=== PATIENT | male | born 1965 | race Caucasian/White ===

== ENCOUNTER 2024-06-17 13:36 | Inpatient (IN) | payer MEDICARE, OTHER ==
[~2024-06-17] VITALS: Ht 162.6 cm; Wt 84.3 kg
[~2024-06-17 13:36] MED LIST: AMANTADINE100 MG PO; CITALOPRAM HBR20 MG PO; LIPITOR20 MG PO; REQUIP1 MG PO; UROXATRAL10 MG PO; ZANTAC150 MG PO
[2024-06-17] MEDS ORDERED: LIDOCAINE 2% VISCOUS 6 ML SYR TOP ONE (14:00)
[2024-06-17 15:29] LABS: BILIRUBIN, URINE NEGATIVE (negative); BLOOD/HGB, URINE SMALL (Negative); KETONE, URINE TRACE (Negative); LEUK ESTERASE, URINE NEGATIVE (negative); NITRITE, URINE NEGATIVE (negative)
[2024-06-17 15:44] LABS: EPITHELIAL CELLS, URINE 0 /lpf (0-1+)
[2024-06-17 15:45] LABS: BACTERIA, URINE NONE SEEN /hpf (negative); CASTS, URINE NONE SEEN \\lpf; COLLECTION TYPE, URINE CATH; CRYSTALS, URINE NONE SEEN (0-1+); REFLEX CULTURE, URINE No (No)
[2024-06-17 15:55] LABS: BASOPHILS 0.5 % (0-2); EOSINOPHILS 2.3 % (0-6); HEMATOCRIT 37.8 % (35.0-50.0); LYMPHOCYTES 19.4 % (24-44); MCH 29.4 (27-36); MCHC 34.4 g/dl (30-36); MCV 85.3 fl (81-99); MONOCYTES 5.5 % (0-12); NEUTROPHILS 72.3 % (39-80); PLATELET COUNT 225 K/uL (140-440); RBC 4.43 M/ul (4.3-5.7); RDW 12.7 (10.5-15.0)
[2024-06-17 16:09] LABS: ALBUMIN 3.8 g/dL (3.4-5.0); ALBUMIN/GLOBULIN RATIO 0.93 (1.1-2.4); ANION GAP 14.6 (7-21); BILIRUBIN, TOTAL 0.4 mg/dL (0.2-1.0); BUN/CREATININE RATIO 8.38 (6.0-28.6); CALCIUM 8.9 mg/dL (8.5-10.1); CREATININE, SERUM 8.35 mg/dL (0.70-1.30); POTASSIUM 5.6 mmol/L (3.5-5.1); PROTEIN, TOTAL 7.9 g/dL (6.4-8.2)
[2024-06-17] MEDS ORDERED: OMEPRAZOLE20 MG PO (16:15)
[2024-06-17] MEDS ORDERED: SODIUM CHLORIDE 0.9% 1,000 ML IV ONE (17:00)
[2024-06-17] MEDS ORDERED: ondansetron HCL 4 MG/2 ML VIAL IV PRN (18:30)
[2024-06-17] MEDS ORDERED: ACETAMINOPHEN 325 MG TAB PO PRN (18:30)
[2024-06-17] MEDS ORDERED: LACTATED RINGER'S 1,000 ML IV SCH (18:30)
[2024-06-17 19:50] VITALS: BP 167/87
--- NOTE | 2024-06-17 19:58 | NUR ---
pt ARRIVED TO THE FLOOR VIA STRETCHER. pt TRANSFERED TO THE BED VIA SLIDE SHEET. REPORT RECEIVED FROM BRE ALCALA. pt DENIES ANY OTHER NEEDS AT THIS TIME. ASSESSMENT AND ADMISSION DONE. SKIN CHECK DONE. REDNESS ON THE BOTTOM BUT IT IS BLANCHABLE. VITAL SIGNS DONE. CALL LIGHT WITHIN REACH.
[2024-06-17 20:00] VITALS: BP 167/87
[2024-06-17 20:23] LABS: ANION GAP 15.1 (7-21); BUN/CREATININE RATIO 9.03 (6.0-28.6); CALCIUM 8.6 mg/dL (8.5-10.1); CREATININE, SERUM 6.86 mg/dL (0.70-1.30); POTASSIUM 5.1 mmol/L (3.5-5.1)
[2024-06-17] MEDS ORDERED: ROPINIROLE HCL 1 MG TAB PO SCH (21:00)
[2024-06-17] MEDS ORDERED: MELATONIN 3 MG TAB PO PRN (21:00)
--- NOTE | 2024-06-17 21:00 | NUR ---
SCHEDULED MEDS ADMINISTERED. IVF INFUSING PER ORDER, SEE MAR. pt DENIES ANY OTHER NEEDS AT THIS TIME. CALL LIGHT WITHIN REACH.
[2024-06-18] VITALS (11 sets, daily range): BP systolic 157–169; BP diastolic 82–93
--- NOTE | 2024-06-18 00:35 | NUR ---
pt RESTING IN THE BED. IVF INFUSING PER ORDER. pt DENIES ANY OTHER NEEDS AT THIS TIME. CALL LIGHT WITHIN REACH.
--- NOTE | 2024-06-18 02:02 | NUR ---
ASSESSMENT AND VITAL SIGNS DONE. pt RESTING IN THE BED. WATER REFRESHED. pt DENIES ANY OTHER NEEDS AT THIS TIME. DE [place] SANTOS EMPTIED.
--- NOTE | 2024-06-18 04:29 | NUR ---
pt RESTING IN THE BED WITH EYES CLOSED. RR EVEN AND UNLABORED. CALL LIGHT WITHIN REACH.
[2024-06-18 05:41] LABS: BASOPHILS 0.4 % (0-2); EOSINOPHILS 4.7 % (0-6); HEMATOCRIT 35.2 % (35.0-50.0); HEMOGLOBIN 12.3 g/dL (12.0-18.0); LYMPHOCYTES 24.5 % (24-44); MCH 29.6 (27-36); MCV 84.7 fl (81-99); MONOCYTES 6.8 % (0-12); NEUTROPHILS 63.6 % (39-80); PLATELET COUNT 239 K/uL (140-440); RBC 4.15 M/ul (4.3-5.7); RDW 12.8 (10.5-15.0)
[2024-06-18 05:54] LABS: ALBUMIN 3.5 g/dL (3.4-5.0); ALBUMIN/GLOBULIN RATIO 0.95 (1.1-2.4); ANION GAP 12.9 (7-21); BILIRUBIN, TOTAL 0.3 mg/dL (0.2-1.0); BUN/CREATININE RATIO 9.73 (6.0-28.6); CALCIUM 8.6 mg/dL (8.5-10.1); CREATININE, SERUM 4.52 mg/dL (0.70-1.30); MAGNESIUM 2.2 mg/dL (1.8-2.4); PHOSPHORUS, INORGANIC 3.9 mg/dL (2.5-4.9); POTASSIUM 4.9 mmol/L (3.5-5.1); PROTEIN, TOTAL 7.2 g/dL (6.4-8.2)
--- NOTE | 2024-06-18 06:39 | NUR ---
pt RESTING IN THE BED. VITAL SIGNS DONE. DE [place] S[place] EMPTIED. pt SLEPT THROUGH THE NIGHT. pt DENIES ANY OTHER NEEDS AT THIS TIME. CALL LIGHT WITHIN REACH.
--- NOTE | 2024-06-18 07:21 | NUR ---
REPORT FROM INES ALCALA.
--- NOTE | 2024-06-18 08:06 | NUR ---
PATIENT IN BED AT THIS TIME. TANK ERECTOR WENT INTO PATIENTS ROOM FOR HOURLY ROUNDS. CALL LIGHT WITHIN REACH, NO FURTHER NEEDS AT THIS TIME.
--- NOTE | 2024-06-18 08:35 | NUR ---
MORNING ASSESSMENT IS COMPLETE. PATIENT DENIES PAIN, INDICATES THAT DE [place] SANTOS COMPLETELY RELIEVED HIS DISCOMFORT. LR @ 250 CONTINUES. 800 OF CLEAR YELLOW URINE FROM DE [place] CATHETER. PATIENT IS SITTING UP IN BED TO EAT BREAKRFAST. MIRAPEX GIVEN FOR RESTLESS LEGS. NO OTHER NEEDS AT THIS TIME.
[2024-06-18] MEDS ORDERED: HEParin SOD (PORCINE) 5,000 UNIT/ML SDV SUB-Q SCH (09:00)
--- NOTE | 2024-06-18 09:47 | NUR ---
PATIENT IN BED AT THIS TIME. SPIRAL MACHINE OPERATOR CHARTED VITALS AND I&O'S. SPIRAL MACHINE OPERATOR ALSO PROVIDED PATIENT WITH CATH CARE. CALL LIGHT WITHIN REACH, NO FURTHER NEEDS AT THIS TIME.
--- NOTE | 2024-06-18 10:28 | NUR ---
Spoke with Phong. 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 He denies any needs and states he has all the DME he needs. Pt has MS and is wc bound. 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 He currently has a villareal cath in place, but uses a condom cath at home. He plans on dc to home when cleared medically.
[2024-06-18] MEDS ORDERED: ROPINIROLE HCL4 M1 PO (10:40)
[2024-06-18] MEDS ORDERED: ONDANSETRON ODT8 MG PO (10:41)
[2024-06-18] MEDS ORDERED: PHARMACY RENAL DOSE ADJUSTMENT 1 DOSE MISC PO SCH (12:00)
--- NOTE | 2024-06-18 13:01 | NUR ---
PATIENT GIVEN 1300 REQUIP. DE [place] SANTOS CATHETER EMPTIED. PATIENT DENIES OTHER NEEDS.
--- NOTE | 2024-06-18 13:46 | NUR ---
UR CLINICAL REVIEW: 2 MN FOR VERSALUS-PER MATERIAL REQUIREMENTS PLANNING MANAGER MEETS INPT FOR [facility] INPT 06/17/24 @ 7736 ORDER MATCHES REG NO AUTH REQUIRED PER MEDICARE GUIDELINES ANTICIPATE DISCHARGE TO HOME IN 1-2 DAYS
--- NOTE | 2024-06-18 13:56 | NUR ---
PATIENT IN BED AT THIS TIME. HORSE TRAINER CHARTED VITALS AND I&O'S. CALL LIGHT WITHIN REACH, NO FURTHER NEEDS A THIS TIME.
--- NOTE | 2024-06-18 14:58 | NUR ---
PATIENT IS RESTING IN BED. PATIENT DENIES NEEDS.
--- NOTE | 2024-06-18 15:29 | NUR ---
PT NOT AVAILABLE FOR VISIT. PROVIDED PRAYER.
[2024-06-18 15:51] LABS: ANION GAP 13.2 (7-21); BUN/CREATININE RATIO 11.93 (6.0-28.6); CALCIUM 8.8 mg/dL (8.5-10.1); CREATININE, SERUM 3.1 mg/dL (0.70-1.30); POTASSIUM 5.2 mmol/L (3.5-5.1)
--- NOTE | 2024-06-18 16:00 | NUR ---
DR. PETERSON IN TO SEE PATIENT. REPEAT CREATNIN IS IN 3 RANGE. PLAN FOR MORNING LABS AND POSSIBLE D/C TO HOME WITH DR. CHIANG FOLLOW UP.
[2024-06-18] MEDS ORDERED: Calcium Gluconate in NS 1,000 MG/50 ML BAG IV ONE (17:00)
--- NOTE | 2024-06-18 17:26 | NUR ---
report received from nida rodriguez. pt resting in bed watching tv, no requests at this time. call light within reach.
--- NOTE | 2024-06-18 18:37 | NUR ---
PATIENT IN BED AT THIS TIME. MOLDER BENCH CHARTED VITALS AND I&O'S. CALL LIGHT WITHIN REACH, NO FURTHER NEEDS AT THIS TIME.
--- NOTE | 2024-06-18 19:05 | NUR ---
REPORT RECEIVED FROM WEN ALCALA. SITTING ON THE BSC WITH DEMETRIO IN FRONT OF HIM. pt WILL CALL WHEN DONE. BOARD UPDATED. pt DENIES ANY OTHER NEEDS AT THIS TIME. CALL LIGHT WITHIN REACH.
--- NOTE | 2024-06-18 19:05 | NUR ---
PATIENT IN BED AT THIS TIME. THIS BANANA LOADER AND RN WEN MOVED PATIENT TO BEDSIDE COMMODE AND THEN BACK TO BED. CALL LIGHT WITHIN REACH, NO FURTHER NEEDS AT THIS TIME.
--- NOTE | 2024-06-18 20:20 | NUR ---
ASSESSMENT AND VITAL SIGNS DONE. IV ASSESSED, WNL. IVF INFUSING PER ODER. pt SITTING UP IN THE BED WATCHING TV. DE [place] SANT[place] CARE DONE. DE [place] SANT[place] EMPTIED. WATER REFRESHED. pt DENIES ANY OTHER NEEDS AT THIS TIME. CALL LIGHT WITHIN REACH.
--- NOTE | 2024-06-18 20:55 | NUR ---
IN pt RM TO ADMINISTER pt SCHEDULED MEDS. pt DENIES ANY OTHER NEEDS AT THIS TIME. CALL LIGHT WITHIN REACH.
--- NOTE | 2024-06-18 22:17 | NUR ---
pt RESTING IN THE BED. pt DENIES ANY NEEDS AT THIS TIME. CALL LIGHT WITHIN REACH.
[2024-06-19] VITALS (11 sets, daily range): BP systolic 146–181; BP diastolic 80–101
--- NOTE | 2024-06-19 00:26 | NUR ---
pt CALLED FOR HIS IV ALARMING. NEW IVF INFUSING. pt DENIES ANY OTHER NEEDS AT THIS TIME. CALL LIGHT WITHIN REACH.
--- NOTE | 2024-06-19 02:06 | NUR ---
pt RESTING IN THE BED WITH EYES CLOSED. RR EVEN AND UNLABORED. CALL LIGHT WITHIN REACH.
--- NOTE | 2024-06-19 04:06 | NUR ---
pt RESTING IN THE BED. pt DENIES ANY OTHER NEEDS AT THIS TIME. CALL LIGHT WITHIN REACH.
[2024-06-19 05:34] LABS: BASOPHILS 0.4 % (0-2); EOSINOPHILS 4.7 % (0-6); HEMATOCRIT 35.7 % (35.0-50.0); HEMOGLOBIN 12.4 g/dL (12.0-18.0); LYMPHOCYTES 34.1 % (24-44); MCH 29.3 (27-36); MCHC 34.7 g/dl (30-36); MCV 84.4 fl (81-99); MONOCYTES 6.4 % (0-12); NEUTROPHILS 54.4 % (39-80); PLATELET COUNT 238 K/uL (140-440); RBC 4.23 M/ul (4.3-5.7); RDW 12.6 (10.5-15.0)
[2024-06-19 05:54] LABS: ALBUMIN 3.5 g/dL (3.4-5.0); ALBUMIN/GLOBULIN RATIO 0.92 (1.1-2.4); ANION GAP 13.6 (7-21); BILIRUBIN, TOTAL 0.4 mg/dL (0.2-1.0); BUN/CREATININE RATIO 10.08 (6.0-28.6); CALCIUM 9.1 mg/dL (8.5-10.1); CREATININE, SERUM 2.38 mg/dL (0.70-1.30); POTASSIUM 4.6 mmol/L (3.5-5.1); PROTEIN, TOTAL 7.3 g/dL (6.4-8.2)
--- NOTE | 2024-06-19 06:05 | NUR ---
ASSESSMENT AND VITAL SIGNS DONE. pt RESTING IN THE BED. DE [place] SANTOS EMPTIED. pt DENIES ANY PAIN AT THIS TIME. pt DENIES ANY OTHER NEEDS AT THIS TIME. CALL LIGHT WITHIN REACH.
--- NOTE | 2024-06-19 07:05 | NUR ---
REPORT RECEIVED FROM FREDRICK OSMAN. PT RESTING IN BED AWAKE AND ALERT, MULTIPLE VISITORS PRESENT. NO REQUESTS AT THIS TIME, CALL LIGHT IN REACH.
--- NOTE | 2024-06-19 08:10 | NUR ---
PATIENT IN BED AT THIS TIME. TRANSCRIBING OPERATORS SUPERVISOR WENT INTO PATIENTS ROOM FOUR HOURLY ROUNDS. CALL LIGHT WITHIN REACH, NO FURTHER NEEDS AT THIS TIME.
--- NOTE | 2024-06-19 08:33 | NUR ---
MEDICATION ADMINISTERED, SEE MAR. PT UP ON BSC AT THIS TIME, REPORTS HE NEEDS MORE TIME. CALL LIGHT IN REACH.
--- NOTE | 2024-06-19 09:08 | NUR ---
PATIENT IN BED AT THIS TIME. THIS PENSION EXAMINER AND PENSION EXAMINER BUSTER ASSISTED PATIENT TO BEDSIDE COMMODE USING SARASTEADY. PATIENT HAS LARGE BM, BOTH CNAS ASSISTED PATIENT BACK TO BED. CALL LIGHT PLACED WITHIN REACH, NO FURTHER NEEDS AT THIS TIME.
--- NOTE | 2024-06-19 09:33 | NUR ---
PT SITTING UP IN BED EATING BREAKFAST AT THIS TIME, VISITOR PRESENT IN ROOM. NO REQUESTS, CALL LIGHT AND PERSONAL BELONGINGS IN REACH.
--- NOTE | 2024-06-19 10:04 | NUR ---
PATIENT IN BED AT THIS TIME. DIALYSIS TECH CHARTED VITALS AND I&O'S. CALL LIGHT WITHIN REACH, NO FURTHER NEEDS AT THIS TIME.
--- NOTE | 2024-06-19 10:21 | NUR ---
ASSESSMENT COMPLETE. PT RESTING IN BED, VISITOR PRESENT BUT LEAVES WHEN THIS RN ENTERS. PT HAS NO COMPLAINTS OF PAIN OR DISCOMFORT AT THIS TIME. DE [place] SANTOS CATH CARE COMPLETED. PT CONVERSING WITH THIS RN PLEASANTLY. PT REPORTS HE WOULD "LOVE IT IF I COULD GO HOME TODAY, BUT IF HE SAYS NO IT'S OKAY". NO REQUESTS AT THIS TIME, CALL LIGHT IN REACH.
--- NOTE | 2024-06-19 11:10 | NUR ---
Spoke with Maycol. He cont. to deny needs. Wanting go home and let him know he will need to discuss this with the Dr. BRUNSON letter given and pt states he has signed before. He declines a copy of the letter.
--- NOTE | 2024-06-19 11:35 | NUR ---
NOTIFIED OF PTs BLOOD PRESSURES. NO NEW ORDERS AT THIS TIME.
[2024-06-19 13:31] LABS: ANION GAP 11.4 (7-21); BUN/CREATININE RATIO 9.86 (6.0-28.6); CALCIUM 9.1 mg/dL (8.5-10.1); CREATININE, SERUM 2.23 mg/dL (0.70-1.30); POTASSIUM 4.4 mmol/L (3.5-5.1)
--- NOTE | 2024-06-19 13:42 | NUR ---
PATIENT IN BED AT THIS TIME. SENIOR INTERACTION DESIGNER CHARTED VITALS AND I&O'S. CALL LIGHT WITHIN REACH, NO FURTHER NEEDS AT THIS TIME.
--- NOTE | 2024-06-19 14:07 | NUR ---
PHYSICAL THERAPY WORKING WITH PT AT THE MOMENT. PT ALERT AND ORIENTED, CONVERSING PLEASANTLY WITH THIS RN. NO REQUESTS, CALL LIGHT IN REACH.
--- NOTE | 2024-06-19 14:14 | NUR ---
MD IN TO UPDATE PT ON PLAN OF CARE. MD ORDERS RATE CHANGE ON IVF TO 100ML/HR, COMPLETED. PT IV FLUSHES WNL. PHYSICAL THERAPY REMAINS IN ROOM WITH PT AT THIS TIME.
--- NOTE | 2024-06-19 16:27 | NUR ---
KEISHA FROM PHYSICAL THERAPY IN WITH PT AT THIS TIME.
--- NOTE | 2024-06-19 18:06 | NUR ---
PATIENT IN BED AT THIS TIME. REFRACTORY TILE HELPER CHARTEED I&O'S, RN YENNY CHARTED VITALS. CALL LIGHT WITHIN REACH, NO FURTHER NEEDS AT THIS TIME.
--- NOTE | 2024-06-19 19:05 | NUR ---
REPORT RECEIVED FROM JOSI ALCALA. pt RESTING IN THE BED. BOARD UPDATED. pt DENIES ANY OTHER NEEDS AT THIS TIME. CALL LIGHT WITHIN REACH.
--- NOTE | 2024-06-19 20:39 | NUR ---
STAGE TECHNICIAN OBTAINED VITALS AND I&O. DE LOS SANTOS BAG EMPTIED. PT STATES NO FURTHER NEEDS AT THIS TIME. CALL LIGHT WITHIN REACH.
--- NOTE | 2024-06-19 21:00 | NUR ---
ASSESSMENT AND VITAL SIGNS DONE. SCHEDULED MEDS ADMINISTERED. DE [place] SANTOS CARE DONE. IV ASSESS, WNL. pt DENIES ANY OTHER NEEDS AT THIS TIME. CALL LIGHT WITHIN REACH.
--- NOTE | 2024-06-20 00:16 | NUR ---
pt RESTING IN THE BED WITH EYES CLOSED. RR EVEN AND UNLABORED. CALL LIGHT WITHIN REACH.
--- NOTE | 2024-06-20 02:07 | NUR ---
pt RESTING IN THE BED. pt DENIES ANY OTHER NEEDS AT THIS TIME. CALL LIGHT WITHIN REACH.
--- NOTE | 2024-06-20 04:15 | NUR ---
pt RESTING IN THE BED WITH EYES CLOSED. RR EVEN AND UNLABORED. CALL LIGHT WITHIN REACH.
[2024-06-20 04:39] VITALS: BP 153/95
--- NOTE | 2024-06-20 04:43 | NUR ---
PR SPECIALIST AND RN OBTAINED VITALS AND I&O. DE [place] SANTOS BAG EMPTIED. PT STATES NO FURTHER NEEDS AT THIS TIME. CALL LIGHT WITHIN REACH.
[2024-06-20 04:45] VITALS: BP 153/95
[2024-06-20 05:48] LABS: BASOPHILS 0.6 % (0-2); HEMATOCRIT 38.4 % (35.0-50.0); HEMOGLOBIN 13.3 g/dL (12.0-18.0); LYMPHOCYTES 30.7 % (24-44); MCH 29.5 (27-36); MCHC 34.6 g/dl (30-36); MCV 85.1 fl (81-99); MONOCYTES 7.1 % (0-12); NEUTROPHILS 56.6 % (39-80); PLATELET COUNT 257 K/uL (140-440); RBC 4.51 M/ul (4.3-5.7); RDW 12.6 (10.5-15.0)
[2024-06-20 06:08] LABS: ALBUMIN 3.7 g/dL (3.4-5.0); ALBUMIN/GLOBULIN RATIO 0.95 (1.1-2.4); ANION GAP 14.2 (7-21); BILIRUBIN, TOTAL 0.5 mg/dL (0.2-1.0); BUN/CREATININE RATIO 11.96 (6.0-28.6); CALCIUM 9.2 mg/dL (8.5-10.1); CREATININE, SERUM 2.09 mg/dL (0.70-1.30); POTASSIUM 4.2 mmol/L (3.5-5.1); PROTEIN, TOTAL 7.6 g/dL (6.4-8.2)
--- NOTE | 2024-06-20 07:17 | NUR ---
REPORT RECEIVED FROM FREDRICK OSMAN. PT AWAKE AND ALERT IN BED, VISITOR AT BEDSIDE. PT ASKING IF/WHEN HE GETS TO GO HOME TODAY. NO REQUESTS, CALL LIGHT AND PERSONAL BELONGINGS IN REACH.
--- NOTE | 2024-06-20 08:23 | NUR ---
MEDICATION ADMINISTERED, SEE MAR. ASSESSMENT COMPLETE. PT RESTING IN BED WITH NO COMPLAINTS OF PAIN OR DISCOMFORT. IVF INFUSING TO L FOREARM WNL, FLUSHES WNL. PTs DE [place] SANTOS IS DRAINING FREELY TO SIDE OF BED, URINE IS CLEAR AND YELLOW. LUNG SOUNDS CLEAR THROUGHOUT. NO EDEMA. PULSES 2+ IN ALL EXTREMETIES. NO COMPLAINTS OF NUMBNESS OR TINGLING. PT EXPRESSES SEVERAL TIMES THAT HE ANXIOUS TO GET HOME. NO REQUESTS, CALL LIGHT AND PERSONAL BELONGINGS IN REACH.
[2024-06-20 09:40] VITALS: BP 150/97
[2024-06-20 09:51] VITALS: BP 150/97
--- NOTE | 2024-06-20 10:33 | NUR ---
VISITED DURING SPIRITUAL CARE ROUNDS. PT SUPPORTED BY IN ROOM. BOTH IN GOOD SPIRITS, LOOKING FORWARD TO IMMINENT DISCHARGE, TALKED OF PETS, ANTICIPATED ACTIVITIES. RECEIVING ROOM CLERK PROVIDED SUPPORTIVE PRESENCE, HOSPITALITY, PRAYER, FACILITATED INTERACTION WITH THERAPY ANIMAL. PT AND EXPRESSED GRATITUDE.
== END 2024-06-20 11:30 | disposition home or self-care (01) | DRG 683 ==
LOC: ED 13:36 → MS 18:41
PROVIDERS: Emergency Medicine; ADMIT Family Medicine; ATTEND Family Medicine
PROC: 0T9B70Z Drainage of Bladder with Drainage Device, Via Natural or Artificial Opening (ICD-10-PCS; principal; 2024-06-17)
DX: N17.9 Acute kidney failure, unspecified (principal); N13.8 Other obstructive and reflux uropathy; N40.1 Benign prostatic hyperplasia with lower urinary tract symptoms; N13.30 Unspecified hydronephrosis; E87.5 Hyperkalemia; G25.81 Restless legs syndrome; Z87.891 Personal history of nicotine dependence; R33.8 Other retention of urine; Z79.899 Other long term (current) drug therapy; Z99.3 Dependence on wheelchair; G35 Multiple sclerosis
CPT/HCPCS: 36415; 74176; 80048; 80053; 81001; 83735; 84100; 85025; 97162; 97166; J1644; J7030; J7121

== ENCOUNTER 2024-06-24 08:04 | Emergency (ER) | payer MEDICARE, OTHER ==
[~2024-06-24] VITALS: Ht 162.6 cm; Wt 84.3 kg
[~2024-06-24 08:04] MED LIST changes: +OMEPRAZOLE20 MG PO; +ONDANSETRON ODT8 MG PO; +ROPINIROLE HCL4 M1 PO
--- OUTSIDE RECORDS SUMMARY | 2024-06-24 08:10 | XMS ---
PreManage Notification: MIKO GOLDSTEIN Security Animal Control Licensing Worker Events No recent Security Events currently on file CRITERIA MET - [facility] - 2 Visits in 30 Days CARE PROVIDERS There are no care providers on record at this time. Alex has no Care Guidelines for this patient. [facility]raon VISIT COUNT (12 MO.) 2 [facility] [facility]. TOTAL 2 NOTE: Visits indicate total known visits. ED/[facility]ISIT TRACKING (12 MO.) [facility] COMPLAINT: - VOMITING 06/17/2024 13:36 [facility] TYPE: Emergency COMPLAINT: - URINE PROBLEM INPATIENT VISIT TRACKING (12 MO.) 06/17/2024 18:41 [facility] TYPE: Medical Surgical COMPLAINT: - JAY DIAGNOSES: - Acute kidney failure, unspecified - Benign prostatic hyperplasia with lower urinary tract symptoms - Dependence on wheelchair - Hyperkalemia - Multiple sclerosis - Other intermodal truck driver (current) drug therapy - Other obstructive and reflux uropathy - Other retention of urine - Personal history of nicotine dependence - Restless legs syndrome - Unspecified hydronephrosis [email or web address]
[2024-06-24] MEDS ORDERED: SODIUM CHLORIDE 0.9% 1,000 ML IV ONE (08:45)
[2024-06-24 09:15] LABS: BASOPHILS 0.5 % (0-2); EOSINOPHILS 0.6 % (0-6); HEMATOCRIT 38.2 % (35.0-50.0); HEMOGLOBIN 13.2 g/dL (12.0-18.0); LYMPHOCYTES 8.5 % (24-44); MCH 28.9 (27-36); MCHC 34.4 g/dl (30-36); MCV 83.8 fl (81-99); NEUTROPHILS 83.4 % (39-80); PLATELET COUNT 245 K/uL (140-440); RBC 4.56 M/ul (4.3-5.7); RDW 12.5 (10.5-15.0)
[2024-06-24 09:43] LABS: ALBUMIN 3.3 g/dL (3.4-5.0); ALBUMIN/GLOBULIN RATIO 0.79 (1.1-2.4); ANION GAP 14.9 (7-21); BILIRUBIN, TOTAL 0.9 mg/dL (0.2-1.0); BUN/CREATININE RATIO 10.47 (6.0-28.6); CREATININE, SERUM 1.91 mg/dL (0.70-1.30); POTASSIUM 3.9 mmol/L (3.5-5.1); PROTEIN, TOTAL 7.5 g/dL (6.4-8.2)
[2024-06-24] MEDS ORDERED: LIDOCAINE 2% VISCOUS 6 ML SYR TOP ONE (10:15)
[2024-06-24] MEDS ORDERED: SODIUM CHLORIDE 0.9% 2,000 ML IV SCH (12:30)
[2024-06-24 12:53] LABS: BILIRUBIN, URINE NEGATIVE (negative); BLOOD/HGB, URINE MODERATE (Negative); KETONE, URINE NEGATIVE (Negative); LEUK ESTERASE, URINE MODERATE (negative); NITRITE, URINE NEGATIVE (negative)
[2024-06-24 12:58] LABS: EPITHELIAL CELLS, URINE 0 /lpf (0-1+)
[2024-06-24 12:59] LABS: BACTERIA, URINE 1+ /hpf (negative); CASTS, URINE NONE SEEN \\lpf; COLLECTION TYPE, URINE CLEAN CATCH; CRYSTALS, URINE NONE SEEN (0-1+); REFLEX CULTURE, URINE Yes (No); WHITE BLOOD CELLS, URINE 41-50 /HPF (0-5)
[2024-06-24] MEDS ORDERED: CEPHALEXIN500 M1 PO (13:15)
[2024-06-24] MEDS ORDERED: ONDANSETRON HCL4 MG PO (13:15)
[2024-06-24] MEDS ORDERED: CEPHALEXIN MONOHYDRATE 500 MG CAP PO ONE (13:15)
[2024-06-24] MEDS ORDERED: MAGNESIUM CITRATE 300 ML BTL PO ONE (13:30)
[2024-06-24 14:08] VITALS: BP 135/85
== END 2024-06-24 14:09 | disposition home or self-care (01) ==
LOC: ED 08:04
PROVIDERS: Emergency Medicine
DX: K59.00 Constipation, unspecified (principal); N39.0 Urinary tract infection, site not specified; Z79.899 Other long term (current) drug therapy; Z79.1 Long term (current) use of non-steroidal anti-inflammatories (NSAID)
CPT/HCPCS: 36415; 51702; 74176; 80053; 81001; 85025; 87077; 87088; 87186; 93005; 93010; 99285-25; A4311; A9270; J7030

== ENCOUNTER 2024-09-30 05:55 | Day surgery (SDC) | payer MEDICARE, OTHER ==
[2024-09-24 11:20] VITALS: BP 118/74
[~2024-09-30] VITALS: Ht 162.6 cm; Wt 86.0 kg
[~2024-09-30 05:55] MED LIST changes: +CEPHALEXIN500 M1 PO; +LACTATED RINGER'S 1,000 ML IV SCH; +LOW DOSE ASPIRI81 MG PO; +MAGNESIUM400 MG PO; +MULTIPLE VITAM1 EAC2 PO; +ONDANSETRON HCL4 MG PO; +VITAMIN D3125 MC2 PO
[2024-09-30 06:11] VITALS: BP 119/73
--- NOTE | 2024-09-30 06:29 | NUR ---
JULIAN AT BS AND IN WAITING FOR SURGERY. PT ARRIVED IN OWN WC. LEG BAG IN PLACE.
[2024-09-30] MEDS ORDERED: CEFAZOLIN SODIUM 2 GM/20 ML SYR IV SCH (07:00)
[2024-09-30] MEDS ORDERED: LIDOCAINE HCL 1% 5 ML SDV INJ ONE (07:00)
[2024-09-30] MEDS ORDERED: IBLOOD GLUCOSE TEST STRIP 1 EA TEST VI PRN (07:00)
--- NOTE | 2024-09-30 07:06 | NUR ---
EMPTIED 100MLS URINE FROM BAG.
--- NOTE | 2024-09-30 07:19 | NUR ---
HARI ESQUIVEL AND DR CHIANG HAVE BEEN IN TO TALK WITH PT.
[2024-09-30] MEDS ORDERED: DEXAMETHASONE SOD PHOS 4 MG/ML VIAL ONE (07:25)
[2024-09-30] MEDS ORDERED: fentaNYL citrate 100 MCG/2 ML VIAL ONE (07:25)
[2024-09-30] MEDS ORDERED: LIDOCAINE HCL 2% 5 ML SDV ONE (07:26)
[2024-09-30] MEDS ORDERED: ACETAMINOPHEN 1,000 MG/100 ML VIAL ONE (07:26)
--- NOTE | 2024-09-30 07:30 | NUR ---
PT NOT AVAILABLE FOR VISIT. PROVIDED PRAYER.
--- NOTE | 2024-09-30 08:48 | NUR ---
09/30/24 0848 Tenisha Ross 0838: PT ARRIVES TO PACU DROWSY. ALBE TO ANSWER QUESTIONS APPROPRIATELY.
[2024-09-30] MEDS ORDERED: HYDROmorphone HCL 1 MG/ML SYR IV PRN (09:00)
[2024-09-30] MEDS ORDERED: OXYCODONE/APAP 5/325 TAB PO PRN (09:00)
[2024-09-30 09:07] VITALS: BP 125/71
[2024-09-30 10:10] VITALS: BP 119/65
--- NOTE | 2024-09-30 10:13 | NUR ---
PT STATES READY TO GO . KNOWS LEG BAG DURING AND LARGE DRAINAGE BAG AT NIGHT.
--- NOTE | 2024-09-30 10:42 | NUR ---
REQUESTS TO DO CARE KENNETH PT DID ALLOW HELP TO GET PT INTO WC AND SWEATS ON. DCD IN PERSONAL WC WITH .
[2024-09-30] MEDS ORDERED: SEVOFLURANE 250 ML BTL INH ONE (14:48)
== END 2024-09-30 10:20 | disposition home or self-care (01) ==
LOC: DS 05:55
PROVIDERS: ATTEND Urology
PROC: 0T9B40Z Drainage of Bladder with Drainage Device, Percutaneous Endoscopic Approach (ICD-10-PCS; principal; 2024-09-30 07:30)
DX: N31.9 Neuromuscular dysfunction of bladder, unspecified (principal); R33.9 Retention of urine, unspecified; R31.0 Gross hematuria; E78.00 Pure hypercholesterolemia, unspecified; G35 Multiple sclerosis; Z99.3 Dependence on wheelchair; Z79.82 Long term (current) use of aspirin; Z79.899 Other long term (current) drug therapy
CPT/HCPCS: 00800; 81001; J0131; J0690; J1100; J2003; J2405; J2704; J3010; J7121